=== PATIENT | male | born 1945 | race Caucasian/White ===

== ENCOUNTER → 2017-01-24 | Day surgery (SDC) | payer MEDICARE, OTHER ==
[~2017-01-24] VITALS: Ht 193 cm; Wt 106.8 kg
[~2017-01-24] MED LIST: 0.9% Sodium Chloride 1,000 ML IV SCH; AMLO10TA3 PO; APIX5TAB PO; ATEN25TA PO; ATEN50TA PO; Benzoc-Butamben-Tetraca Spray 20 Gm Spray TOPICAL ONE; CHOL200025 PO; FEBU80TA PO; FOLI1TAB18 PO; LOSA100T29 PO; Lactated Ringer's 1,000 ML IV ONE; Lactated Ringer's 1,000 ML IV SCH; Lactated Ringer's 500 ML IV PRN; Propofol 10,000 mCg/mL 20 mL Inj ONE; SIMV20TA4 PO
[2017-01-24 09:28] VITALS: BP 133/89; PULSE 68; RESP 16; O2SAT 98
[2017-01-24 09:28] LABS: BASOPHILS % (AUTO) 0.3 % (0-3); MONOCYTES % (AUTO) 7.6 % (4-12); Mean Corpuscular Hemoglobin 29.8 pg (27.0-35.0); Mean Corpuscular Volume 86.9 fL (81-100); NEUTROPHILS % (AUTO) 72.9 % (40-74); Platelet Count 194 bil/L (150-400)
[2017-01-24 09:42] LABS: INR 1.06 ratio
[2017-01-24 09:48] LABS: Magnesium 2.2 mg/dL (1.6-2.6)
--- NOTE | 2017-01-24 10:19 | PCM.HPANE ---
Patient Data Surgeon Admitting Provider: Attending Provider:Fabrice Lawrence MD Primary Care Physician:Daisy Kennedy DO Other Provider:Rom Kern Anesthesia Reason for Visit Persistent A-Fib Ht/WT & BMI Height (Feet): 6 Height (Inches): 4.00 Weight (Kilograms): 106.800 Body Mass Index 28.67 Allergies Coded Allergies: No Known Allergies (Unverified , 01/24/17) Past Anesthesia History Anesthesia History: Denies:: Abnormal Airway, Anesthesia Reactions, Difficult Intubation, Fam Anesthesia Reaction, Fam Malignant Hypertherm, Malignant Hyperthermia Diabetes History Hx Diabetes?: No MRSA MRSA: No Medications Reported Medications Cholecalciferol (Vitamin D3) (Vitamin D3)2,000 Unit Tablet8,000 Unit PO DAILY 12/24/16 Febuxostat (Uloric)80 Mg Fpkdes70 Mg PO DAILY 12/24/16 Simvastatin 20 Mg Vsqpxw35 Mg PO HS Ref 0 12/24/16 Losartan Potassium 100 Mg [id number] Mg PO DAILY 12/24/16 Folic Acid 1 Mg Tablet1 Mg PO DAILY 30 Days 12/24/16 Apixaban (Eliquis)5 Mg Tablet5 Mg PO BID 12/24/16 Atenolol 25 Mg Rjzeut52 Mg PO QPM #30 TABLET Ref 0 12/24/16 Atenolol 50 Mg Omdkqu01 Mg PO MORNING #30 TABLET Ref 0 12/24/16 Amlodipine 10 Mg Mvrmml60 Mg PO DAILY Ref 0 12/24/16 History History of ENT Problems?: Yes HEENT History: Positive for:: Cataracts Sinus Problem (deviated septum) Denies:: Abnormal Airway Difficult Intubation Dysphagia Glaucoma Hearing Problem TMJ Denture Type: None Teeth Condition: Within Normal Limits Hx of Heart Problems?: Yes Cardiovascular History: Positive for:: Heart Murmur Irregular Heartbeat (atrial fibrillation) Denies:: AICD Abdominal Aortic Aneurism Atrial Fibrillation Cardiac Surgery (clean heart cath) Chest Pain Congestive Heart Failure Coronary Artery Disease Edema Hypertension Pacemaker Peripheral Vascular Rheumatic Fever Thrombophlebitis Valvular Heart Disease Hx of Respiratory Problem?: No Respiratory History: Denies:: Asthma COPD Chest Surgery Cough Dyspnea Emphysema Hemoptysis Oxygen Administration Pneumonia Pulmonary Embolism Tuberculosis Use of C-PAP Machine Use of Inhalers / NEBS Hx Neurologic Problems?: Yes Neurological History: Positive for:: CVA Denies:: Dementia Seizures Hx of GI Problems?: Yes Hx of Problems?: No HX of Peritoneal Dialysis: No Hx Musculoskeletal Problems?: No Hx of Psycho/Social Problems?: No Hx Surgeries?: Yes (hernia repair,) Hx Any Other Health Problems?: No Other History: Positive for:: Cancer (basal cell carcinoma) Denies:: Hospitalization Thyroid Disease History Blood Transfusions: Positive for:: Accept Blood Products? Denies:: Blood Transfuse Reaction Blood Transfusions Hx Diabetes: No Hx Alcohol Use: Yes (1 drink a day)Hx Substance Use: No Stop/Bang Risk Assessment Category Category 1A: Patient has history of documented sleep apnea, and HAS NOT received any narcotic, sedative or anesthesia administration during this stay. Category 1B: Patient has history of documented sleep apnea, and HAS received any narcotic , sedative or anesthesia administration during this stay Category 2: Patient has SUSPECTED Obstructive Sleep Apnea, and HAS received any narcotic , sedative or anesthesia administration during this stay. Category 3: Patient has SUSPECTED Obstructive Sleep Apnea and HAS NOT received narcotic, sedative or anesthesia administration during this stay. Category 4: Outpatient in Procedural Areas with known sleep apnea or who screen positive for High Risk via the STOP/BANG questionnaire. Exam Exam Vital Signs Vital Signs Date Time Temp Pulse Resp B/P Pulse Ox O2 Delivery O2 Flow Rate FiO2 01/24/17 09:28 36.8 68 16 133/89 98 Room Air General Appearance: Alert, Oriented X3, Cooperative, No Acute Distress HEENT/AIRWAY: MP 2, Neck Movement (FROM), Mouth Opening (3 FBMO) Lungs: Clear to Auscultation, Normal Air Movement Heart: Exam Unremarkable, Regular Rate/Rhythm, No Murmurs/Rubs/Gallops Meds/Labs/Diagnostics Labs Test 01/24/17 09:16 White Blood Count 7.0th/mm3 (3.8-10.1) Red Blood Count 5.26mil/mm3 (4.40-5.80) Hemoglobin 15.7g/dL (13.8-17.2) Hematocrit 45.7% (41.0-50.0) Mean Corpuscular Volume 86.9fL (81-100) Mean Corpuscular Hemoglobin 29.8pg (27.0-35.0) Mean Corpuscular Hemoglobin Concent 34.4% (32.0-37.0) Red Cell Distribution Width 13.1% (12.3-15.4) Platelet Count 194bil/L (150-400) Neutrophils (%) (Auto) 72.9% (40-74) Lymphocytes (%) (Auto) 17.1% (14-46) Monocytes (%) (Auto) 7.6% (4-12) Eosinophils (%) (Auto) 2.0% (0-5) Basophils (%) (Auto) 0.3% (0-3) Plan Impression Patient chart reviewed, patient interviewed and anesthestic plan with risks, benefits, and alternatives discussed, and informed consent obtained. NPO per Anesth. Guidelines: Yes ASA Physical Status: ASA3 Severe Disease Anesthetic Plan: GA, MAC Bene/Risks/Altern/Consents: Yes HP Complete Prior to Induction: Yes Valente Eden MD Jan 24, 2017 09:44
--- NOTE | 2017-01-24 11:06 | PCM.ANEP1 ---
Post Anesthesia PACU Phase 1 Assessment Vital Signs Vital Signs Date Time Temp Pulse Resp B/P Pulse Ox O2 Delivery O2 Flow Rate FiO2 01/24/17 09:28 36.8 68 16 133/89 98 Room Air Anesthetic Administered: GA, MAC Level of Alertness: Awake, talking KHAN's with Equal Strength: Yes Pain: No Nausea or Vomiting: No CV Function & Hydration Stable: Yes Airway Device: n/a Oxygen Delivery: Nasal Cannula Lungs: Clear to Auscultation, Normal Air Movement Dermatome Level: Full Sensation PACU Phase 2 Assessment Complications: No Follow up Care: N/A Patient Instructions Provided: N/A Valente Eden MD Jan 24, 2017 11:06
[2017-01-24 11:15] VITALS: BP 129/74; PULSE 54; RESP 16; O2SAT 98
--- NOTE | 2017-01-24 11:49 | OUT PROC ---
[address] [address] PROCEDURE NOTE PATIENT: KRISHNA BURGESS : 1945 MR#: [id number] ADMIT: 01/24/2017 JOB ID: [id number] DATE OF PROCEDURE: 01/24/2017 INDICATION: Atrial fibrillation with PFO CONSENT: Informed consent was obtained from the patient after explaining benefits and the risks, which include, but not limited to, risk of bleeding, GI perforation, asystole, stroke, , anesthesia related complication, etc. The patient verbalizes understanding. All the questions were answered. SEDATION: Sedation was given by anesthesiologist. DESCRIPTION OF PROCEDURE: The patient was brought to the [facility] in a stable condition. He was monitored constantly with blood pressure recording, EKG monitoring, and pulse oximetry monitoring. The patient already on Eliquis 5 mg twice a day for a long time for anticoagulation. Electrolytes were checked. They were within normal limits. After adequate sedation, transesophageal echocardiogram was performed, as per standard procedure. Please refer to separate report in the Travel Notes system for NEW. Transesophageal echocardiogram did not reveal any obvious intracardiac clot. There was spontaneous echo contrast in the left atrium and left atrial appendage. The patient already on Eliquis 5 mg twice a day for at least a couple of months. Hence, we decided to proceed with cardioversion. After adequate sedation, using standard anterior posterior pad, 200 joule, biphasic synchronized shock was delivered x1. It was successful. The patient got converted to sinus rhythm. There was initial sinus bradycardia. At the time of dictation, heart rate around 58- 59. The patient resumed consciousness. No immediate complications. He is able to move all the extremities. Alert, oriented to time, place and person. CONCLUSIONS: Successful transesophageal echocardiography cardioversion. The patient is in sinus rhythm. There is mild sinus bradycardia. I will cut down the atenolol to 25 mg daily from tomorrow. Continue Eliquis 5 mg twice a day. He will be seen by mid level in 2-3 weeks with repeat EKG. Advised patient not to drive today or not to indulge in any activities where he can harm himself. He understands it. [facility]
--- NOTE | 2017-01-24 12:42 | NUR ---
Pt discharged to home, ambulatory, accompanied by spouse, VSS in NSR, given all discharge instructions.
--- NOTE | 2017-01-24 16:08 | DRSVH ---
[facility] [address] [place] [address] Echocardiogram Report Name: KRISHNA BURGESS Daniel e: 01/24/2017 Height: 75 in Hospital Exam Location: [facility] Weight: 240 lb Gender: Male BSA: 2.4 m2 : 1945 Age: 71 yrs BP: 143/107 mmHg Reason For Study: Atrial Fibrillation Ordering Physician: Roxann Patterson Performed By: Katelynn Barrios Referring Physician: ROXANN PATTERSON Interpretation Summary Spontaneous contrast in left atrial appendage. Spontaneous contrast in LA. No thrombus is detected in the left atrial appendage. No left atrial mass or thrombus visualized. PFO like tunnel seen (0.2 cm) but no right to left shunt. The left ventricle is normal in size. The ejection fraction is estimated to be 40-45%. There is mild global hypokinesis of the left ventricle. Procedure: The patient was brought to the [facility] in a fasting state. Sedation was managed by anesthesiologist; see anesthesiology notes for details. A multifrequency, multiplane transesopheageal echocardiographic endoscope was inserted and manipulated in the standard fashion to achieve multiplane views. The usual views were obtained; basal, mid-esophageal, transgastric and aortic views. The patient's vital signs, including blood pressure, heart rate, pulse oximetry and cardiac rhythm were monitored throughout the procedure and remained stable. The patient tolerated the procedure well without evidence of orophangeal or esophageal trauma. A 2D transesophageal echocardiogram with spectral and color flow Doppler was performed. Contrast injection with agitated saline was performed. The patient was in atrial fibrillation with controlled ventricular rate during the exam. There were no complications. Left Ventricle: The left ventricle is normal in size. There is no thrombus. The ejection fraction is estimated to be 40-45%. There is mild global hypokinesis of the left ventricle. Right Ventricle: The right ventricle is grossly normal size. The right ventricular systolic function is normal. Atria: No thrombus is detected in the left atrial appendage. Spontaneous contrast in LA. The left atrium is severely dilated. No left atrial mass or thrombus visualized. Spontaneous contrast in left atrial appendage. Right atrial size is normal. PFO like tunnel seen (0.2 cm) but no right to left shunt. Mitral Valve: The mitral valve leaflets are slightly calcified. There is mild mitral regurgitation. Aortic Valve: The aortic valve is trileaflet. The aortic valve opens well. There is trace aortic regurgitation. Tricuspid Valve: The tricuspid valve is normal in structure and function. There is trace tricuspid regurgitation. Pulmonic Valve: The pulmonic valve leaflets are thin and pliable; valve motion is normal. There is trace pulmonic regurgitation. Reading Physician:CHER
== END | disposition home or self-care (01) ==
LOC: SOUO 06:27
PROVIDERS: ATTEND Internal Medicine Cardiovascular Disease
DX: I48.1 Persistent atrial fibrillation (principal); Q21.1 Atrial septal defect; I10 Essential (primary) hypertension; I45.10 Unspecified right bundle-branch block; E78.00 Pure hypercholesterolemia, unspecified; Z86.73 Personal history of transient ischemic attack (TIA), and cerebral infarction without residual deficits; G47.33 Obstructive sleep apnea (adult) (pediatric); M10.9 Gout, unspecified; Z79.01 Long term (current) use of anticoagulants
CPT/HCPCS: 36415; 80048; 83735; 85025; 85610; 92960; 93005; C8925; J2704